=== PATIENT | female | born 1970 | race Caucasian/White ===

== ENCOUNTER 2017-05-03 16:46 | Emergency (ER) | payer MEDICAID, OTHER ==
[~2017-05-03] VITALS: Ht 152.4 cm; Wt 53.6 kg
[~2017-05-03 16:46] MED LIST: CIP250 PO; CLOP75TA32 PO; FERR-89 PO; FLUO-191 PO; PRAV20TA4 PO
[2017-05-03 17:07] LABS: GLUCOSE,POINT OF CARE 73 MG/DL (70-110)
[2017-05-03] MEDS ORDERED: IBUPROFEN 600 MG TABLET PO ONE (18:15)
[2017-05-03] MEDS ORDERED: HALOPERIDOL 5 MG TABLET PO ONE (18:30)
[2017-05-03] MEDS ORDERED: LORazepam 2 MG TABLET PO ONE (18:30)
[2017-05-03 18:35] LABS: BASOPHILS # (AUTO) 0.01 K/uL (0.00-0.20); BASOPHILS % (AUTO) 0.1 % (0.0-2.0); EOSINOPHILS # (AUTO) 0.04 K/uL (0.00-0.70); EOSINOPHILS % (AUTO) 0.27 % (1.0-6.0); HEMATOCRIT 35.2 % (36-46); HEMOGLOBIN 11.5 g/dL (12.0-16.0); LYMPHOCYTES # (AUTO) 1.1 K/uL (1.0-4.8); LYMPHOCYTES % (AUTO) 8.1 % (22.0-44.0); MEAN CORPUSCULAR HEMOGLOBIN 26.8 pg (26.0-34.0); MEAN CORPUSCULAR HGB CONC 32.6 G/dL (31.0-37.0); MEAN CORPUSCULAR VOLUME 82 fL (80-100); MONOCYTES # (AUTO) 1.2 K/uL (0.1-1.0); MONOCYTES % (AUTO) 9.2 % (2.0-9.0); NEUTROPHILS # (AUTO) 10.8 K/uL (1.8-7.7); NEUTROPHILS % (AUTO) 82.3 % (40.0-70.0); PLATELET COUNT (AUTO) 377 K/uL (150-450); RED BLOOD CELL COUNT(AUTO) 4.28 MIL/uL (4.00-5.20); RED CELL DISTRIBUTION WIDTH 14.5 % (11.5-14.5); WHITE BLOOD COUNT (AUTO) 13.1 K/uL (4.5-11.0)
[2017-05-03 18:44] LABS: ANION GAP 12 mmol/L (8-16); CALCIUM, TOTAL 9.5 mg/dL (8.8-10.5); CARBON DIOXIDE 23 mmol/L (22-29); CHLORIDE 101 mmol/L (98-107); CREATININE 0.66 mg/dL (0.60-1.30); GLOMERULAR FILTR. RATE CALC > 60 mL/min (>60); POTASSIUM 3.3 mmol/L (3.5-5.1); SODIUM SERUM 136 mmol/L (136-145); UREA NITROGEN, BLOOD 16 mg/dL (7-18)
[2017-05-03 18:53] LABS: ALANINE AMINOTRANSFERASE 66 U/L (12-78); ALBUMIN 3.6 g/dL (3.4-5.0); ASPARTATE AMINOTRANSFERASE 61 U/L (15-37); BILIRUBIN,TOTAL 0.5 mg/dL (0.1-1.0); TOTAL PROTEIN, SERUM 7.3 g/dL (6.4-8.2)
[2017-05-03] MEDS ORDERED: IOVERSOL 320 MG/ML 100 ML VIAL ONE (20:33)
[2017-05-03] MEDS ORDERED: SODIUM CHLORIDE 0.9% 100 ML ONE (20:33)
[2017-05-03] MEDS ORDERED: ACETAMINOPHEN 325 MG TABLET PO ONE (21:00)
[2017-05-03 22:54] VITALS: BP 103/65
== END 2017-05-03 22:56 | disposition home or self-care (01) ==
LOC: EMS 16:47
DX: J18.9 Pneumonia, unspecified organism (principal); F32.9 Major depressive disorder, single episode, unspecified; F17.210 Nicotine dependence, cigarettes, uncomplicated; R45.851 Suicidal ideations; F41.9 Anxiety disorder, unspecified; Z79.01 Long term (current) use of anticoagulants
CPT/HCPCS: 36415; 71010; 71260; 80053; 82962; 85025; 99285; 99406; G0480; J7050; Q9967